=== PATIENT | female | born 1980 | race Two or more races ===

== ENCOUNTER 2017-04-07 14:09 | Emergency (ER) | payer MEDICAID ==
--- NOTE | 2017-04-07 15:16 | EDPHY ---
H & P Time Seen by Provider: 04/07/17 15:15 HPI/ROS: Chief complaint. Headache HPI. 36-year-old female with headaches for many years. She has had daily headaches for the past 6 weeks. They usually began at 1:22 a.m. in the afternoon. She has been using a bottle of Tylenol per for control of her headaches. Now she has left flank pain back pain. She has had no fever or upper respiratory symptoms. No injury to her head. Headache is described as behind both eyes and then going to the top of her head. Several years ago she had similar symptoms previously and then she had eye surgery which resolved her headaches for quite some time. She does not use any eyedrops or have continuing eye problems other than wearing glasses. She denies focal weakness or paresthesias. No change in her vision. Denies chest discomfort or trouble ROS Constitutional. no fever/chills, no weakness Eyes. no problems with vision ENT. no sore throat, no nasal drainage Cardiovascular. no chest pain Respiratory. no shortness of breath, no cough Abdominal. no abdominal pain, no nausea/vomiting, no diarrhea. Left flank pain . no problems urinating MS. Low back pain Skin. no rash Lymph. no swollen glands Neuro. Headache Past Medical/Surgical History: Headache, Social History: Single, nonsmoker, no alcohol Smoking Status: Never smoked Physical Exam: General Appearance: Alert well-developed female mild distress vital signs are stable Eyes: Pupils equal and round no pallor or injection. No restriction of gaze ENT, Mouth: Mucous membranes are moist. Respiratory: There are no retractions, lungs are clear to auscultation. Cardiovascular: Regular rate and rhythm. Gastrointestinal: Abdomen is soft and nontender, no masses, bowel sounds normal. Neurological: Awake and alert, sensory and motor exams grossly normal. Speech is normal. Cranial nerves are normal. There is no pronator drift. Finger-to- nose and edpt-cl-[id number] are intact bilateral Skin: Warm and dry, no rashes. Musculoskeletal: Neck is supple nontender. Extremities symmetrical, full range of motion. Psychiatric: Patient is oriented X 3, there is no agitation. Constitutional: Initial Vital Signs Temperature (C) 37 C 04/07/17 14:23 Heart Rate 80 04/07/17 14:23 Respiratory Rate 18 04/07/17 14:23 Blood Pressure 122/95 H 04/07/17 14:23 O2 Sat (%) 96 04/07/17 14:23 O2 Delivery Mode Room Air Allergies/Adverse Reactions: No Known Allergies Allergy (Unverified 10/22/09 09:09) Home Medications: Medication Instructions Recorded Rizatriptan Benzoate [Maxalt] 5 mg PO ONCE PRN #7 tab 04/07/17 Medical Decision Making Procedures: IV normal saline, Toradol IV ED Course/Re-evaluation: Re-evaluation 4:45 p.m.. Patient is stable. Does not have a headache. Recheck again at 5:20 p.m.. Patient is stable. She is having her menstrual. And feels that the blood in her urine is from menstrual flow. Patient and I discussed laboratory evaluation, treatment plan including criteria for return importance of follow-up and further evaluation. She expresses understanding and agreement Differential Diagnosis: The sound like stress type headaches as they always occur at 1 or 2 in the afternoon. She has a normal neurologic exam. Using Toradol her headache is completely resolved. She told me that she was using a bottle of Tylenol week but her Tylenol level is normal and there is no elevation of LFTs. I considered a CD manifested toxicity as well - Data Points Laboratory Results: Laboratory Results 04/07/17 15:45 04/07/17 15:45 04/07/17 04/07/17 04/07/17 16:50 15:45 15:45 WBC RBC Hgb Hct MCV MCH MCHC RDW Plt Count MPV Neut % (Auto) Lymph % (Auto) [place] % (Auto) Eos % (Auto) Baso % (Auto) Nucleat RBC Rel Count Absolute Neuts (auto) Absolute Lymphs (auto) Absolute Monos (auto) Absolute Eos (auto) Absolute Basos (auto) Absolute Nucleated RBC Immature Gran % Immature Gran # Sodium 142 mEq/L mEq/L (134-144) Potassium 4.3 mEq/L mEq/L (3.5-5.2) Chloride 109 mEq/L mEq/L (97-110) Carbon Dioxide 23 mEq/l mEq/l (22-31) Anion Gap 10 mEq/L mEq/L (8-16) BUN 14 mg/dL mg/dL (7-23) Creatinine 0.7 mg/dL mg/dL (0.6-1.0) Estimated GFR > 60 Glucose 78 mg/dL mg/dL (70-100) Calcium 9.1 mg/dL mg/dL (8.5-10.4) Total Bilirubin 0.5 mg/dL mg/dL (0.1-1.4) Conjugated Bilirubin 0.3 mg/dL mg/dL (0.0-0.5) Unconjugated Bilirubin 0.2 mg/dL mg/dL (0.0-1.1) AST 20 IU/L IU/L (14-46) ALT 28 IU/L IU/L (9-52) Alkaline Phosphatase 48 IU/L IU/L (38-126) Total Protein 7.3 g/dL g/dL (6.3-8.2) Albumin 4.4 g/dL g/dL (3.5-5.0) Beta HCG, Qual NEGATIVE Urine Color YELLOW Urine Appearance HAZY Urine pH 5.0 (5.0-7.5) Ur Specific [place] 1.018 (1.002-1.030) Urine Protein NEGATIVE (NEGATIVE) Urine Ketones NEGATIVE (NEGATIVE) Urine Blood 3+ H (NEGATIVE) Urine Nitrate NEGATIVE (NEGATIVE) Urine Bilirubin NEGATIVE (NEGATIVE) Urine Urobilinogen NEGATIVE EU EU (0.2-1.0) Ur Leukocyte Esterase NEGATIVE (NEGATIVE) Urine RBC 50-182 /hpf H /hpf (0-3) Urine WBC 1-3 /hpf /hpf (0-3) Ur Epithelial Cells TRACE /lpf /lpf (NONE-1+) Urine Mucus TRACE /lpf /lpf (NONE-1+) Urine Glucose NEGATIVE (NEGATIVE) Acetaminophen < 10 mcg/mL L mcg/mL (10.0-30.0) 04/07/17 15:45 WBC 5.80 10^3/uL 10^3/uL (3.80-9.50) RBC 4.55 10^6/uL 10^6/uL (4.18-5.33) Hgb 13.9 g/dL g/dL (12.6-16.3) Hct 42.0 % % (38.0-47.0) MCV 92.3 fL fL (81.5-99.8) MCH 30.5 pg pg (27.9-34.1) MCHC 33.1 g/dL g/dL (32.4-36.7) RDW 13.6 % % (11.5-15.2) Plt Count 327 10^3/uL 10^3/uL (150-400) MPV 11.6 fL fL (8.7-11.7) Neut % (Auto) 61.1 % % (39.3-74.2) Lymph % (Auto) 28.1 % % (15.0-45.0) [place] % (Auto) 7.2 % % (4.5-13.0) Eos % (Auto) 2.6 % % (0.6-7.6) Baso % (Auto) 0.7 % % (0.3-1.7) Nucleat RBC Rel Count 0.0 % % (0.0-0.2) Absolute Neuts (auto) 3.54 10^3/uL 10^3/uL (1.70-6.50) Absolute Lymphs (auto) 1.63 10^3/uL 10^3/uL (1.00-3.00) Absolute Monos (auto) 0.42 10^3/uL 10^3/uL (0.30-0.80) Absolute Eos (auto) 0.15 10^3/uL 10^3/uL (0.03-0.40) Absolute Basos (auto) 0.04 10^3/uL 10^3/uL (0.02-0.10) Absolute Nucleated RBC 0.00 10^3/uL 10^3/uL (0-0.01) Immature Gran % 0.3 % % (0.0-1.1) Immature Gran # 0.02 10^3/uL 10^3/uL (0.00-0.10) Sodium Potassium Chloride Carbon Dioxide Anion Gap BUN Creatinine Estimated GFR Glucose Calcium Total Bilirubin Conjugated Bilirubin Unconjugated Bilirubin AST ALT Alkaline Phosphatase Total Protein Albumin Beta HCG, Qual Urine Color Urine Appearance Urine pH Ur Specific [place] Urine Protein Urine Ketones Urine Blood Urine Nitrate Urine Bilirubin Urine Urobilinogen Ur Leukocyte Esterase Urine RBC Urine WBC Ur Epithelial Cells Urine Mucus Urine Glucose Acetaminophen Medications Given: Discontinued Medications Sodium Chloride (Ns) 1,000 mls @ 0 mls/hr IV ONCE ONE; Wide Open PRN Reason: Protocol Stop: 04/07/17 15:30 Last Admin: 04/07/17 15:58 Dose: 1,000 mls Ketorolac Tromethamine (Toradol) 30 mg IVP EDNOW ONE Stop: 04/07/17 15:30 Last Admin: 04/07/17 15:58 Dose: 30 mg Departure - Departure Disposition: Home, Routine, Self-Care Clinical Impression: Headache Qualifiers: Headache type: tension-type Headache chronicity pattern: acute headache Intractability: not intractable Qualified Code(s): G44.209 - Tension-type headache, unspecified, not intractable Condition: Good Instructions: Acute Headache (ED) Additional Instructions: May use Tylenol 1000 mg every 8 hours for headache. Ibuprofen 600 mg every 6 hours as needed for headache. Drink plenty of fluids and stay hydrated. Try Maxalt in addition for your headache. Return for worsening headache, fever. Make an appointment with physician for further evaluation and treatment of your headaches. Referrals: NONE *PRIMARY CARE P,. [Primary Care Provider] - As per Instructions Franco Allen MD [Medical Doctor] - 5-7 days, call for appt. Prescriptions: Rizatriptan Benzoate [Maxalt] 5 mg PO ONCE PRN #7 tab PRN Reason: Headache
[2017-04-07] MEDS ORDERED: KETOROLAC 30 MG/1 ML SDV IVP ONE (15:29)
[2017-04-07] MEDS ORDERED: NS 1,000 ML IV ONE (15:29)
[2017-04-07 15:58] LABS: % IMMATURE GRANULYOCYTES 0.3 % (0.0-1.1); ABSOLUTE IMMATURE GRANULOCYTES 0.02 10^3/uL (0.00-0.10); ADD DIFF? NO; ADD MORPH? NO; ADD SCAN? NO; ATYPICAL LYMPHOCYTE FLAG 30 (0-99); FRAGMENT RBC FLAG 0 (0-99); HEMOGLOBIN 13.9 g/dL (12.6-16.3); LEFT SHIFT FLG 0 (0-99); LIPEMIA HEMOLYSIS FLAG 80 (0-99); MEAN CELL HEMOGLOBIN 30.5 pg (27.9-34.1); MEAN CELL HEMOGLOBIN CONCENTR. 33.1 g/dL (32.4-36.7); MEAN CELL VOLUME 92.3 fL (81.5-99.8); MEAN PLATELET VOLUME 11.6 fL (8.7-11.7); PLATELET CLUMPS FLAG 0 (0-99); PLATELET COUNT 327 10^3/uL (150-400); RED BLOOD CELL COUNT 4.55 10^6/uL (4.18-5.33); RED CELL DISTRIBUTION WIDTH 13.6 % (11.5-15.2)
[2017-04-07 16:10] LABS: ALANINE AMINOTRANSFERASE 28 IU/L (9-52); ALBUMIN 4.4 g/dL (3.5-5.0); ALKALINE PHOSPHATASE 48 IU/L (38-126); ANION GAP 10 mEq/L (8-16); ASPARTATE AMINOTRANSFERASE 20 IU/L (14-46); BILIRUBIN,TOTAL 0.5 mg/dL (0.1-1.4); BILIRUBIN-CONJUGATED 0.3 mg/dL (0.0-0.5); BILIRUBIN-UNCONJUGATED 0.2 mg/dL (0.0-1.1); CALCIUM 9.1 mg/dL (8.5-10.4); CARBON DIOXIDE 23 mEq/l (22-31); CHLORIDE 109 mEq/L (97-110); CREATININE 0.7 mg/dL (0.6-1.0); GLOMERULAR FILTRATION RATE > 60; GLUCOSE 78 mg/dL (70-100); POTASSIUM 4.3 mEq/L (3.5-5.2); SODIUM 142 mEq/L (134-144); TOTAL PROTEIN 7.3 g/dL (6.3-8.2)
[2017-04-07 16:58] LABS: COLOR YELLOW; LEUKOCYTE ESTERASE,URINE NEGATIVE (NEGATIVE); NITRITE,URINE NEGATIVE (NEGATIVE)
[2017-04-07 17:15] LABS: MUCUS TRACE /lpf (NONE-1+); RBC,URINE 50-182 /hpf (0-3)
[2017-04-07 17:35] VITALS: BP 112/76; PULSE 76; RESP 16; TEMP 97.7; O2SAT 98
== END 2017-04-07 17:41 | disposition home or self-care (01) ==
DX: G44.209 Tension-type headache, unspecified, not intractable (principal); E86.9 Volume depletion, unspecified
CPT/HCPCS: 96374; G0480; J1885

== ENCOUNTER 2017-12-27 09:55 | Emergency (ER) | payer MEDICAID ==
--- NOTE | 2017-12-27 10:11 | EDPHY ---
H & P Stated Complaint: Fever and body aches for 6 weeks, cough since Source: Patient Exam Limitations: No limitations - Personal History LMP (Females 10-55): 8-14 Days Ago Current Tetanus Diphtheria and Acellular Pertussis (TDAP): Yes - Medical/Surgical History Hx Asthma: No Hx Chronic Respiratory Disease: No Hx Diabetes: No Hx Cardiac Disease: No Hx Renal Disease: No Hx Cirrhosis: No Hx Alcoholism: No Hx HIV/AIDS: No Hx Splenectomy or Spleen Trauma: No Other PMH: c section x 2 - Social History Smoking Status: Former smoker Time Seen by Provider: 12/27/17 10:10 HPI/ROS: HPI: This is a 37-year-old female who presents with Chief Complaint: Fever and body aches for 6 weeks, cough since Location: Chest Quality: Cough Duration: 6 weeks Signs and Symptoms: no fever, no nausea, no vomiting, no diarrhea, no urinary symptoms, no chest pain, no shortness of breath, no wheezing, + productive cough , + sore throat, no neck stiffness, no joint pain, no swollen glands, no ear pain, no rash, + nasal congestion Timing: Worsening Severity: Moderate Context: Patient complains of cough, sore throat, earache, body aches and fever x 6 weeks. Patient is a smoker and reports over the last 3 days her cough has now become productive and more harsh in severity. It is now keeping her up at night. Denies any history of lung disease. She has not smoked since . LMP 1-2 weeks ago. Patient denies any recent long distance travel/ lower extremity edema. History of bilateral tubal ligation does not take oral contraceptive pills. Reports decreased appetite but eating and drinking without difficulty. Has 4 children at home and works full-time job. Modifying Factors: None Comment: ROS: see HPI Constitutional: + fever, no chills, no weight loss Eyes: No blurred vision Respiratory: No shortness of breath, + cough Cardiovascular: No chest pain, no palpitations Gastrointestinal: No nausea, no vomiting, no diarrhea, no hematemesis, no blood in stool Genitourinary: No dysuria, no blood in urine Extremities: No myalgias, no edema Neurologic: No weakness, no numbness Skin: No rashes, no petechiae Hematologic: No bruising, no bleeding MEDICAL/SURGICAL/SOCIAL HISTORY: Medical history: Generally healthy. Does not take any regular medications. Surgical history: x2; bilateral tubal ligation Social history: Family history noncontributory. CONSTITUTIONAL: Polite and cooperative, ill but nontoxic-appearing adult female , awake and alert, no obvious distress HEENT: Atraumatic and normocephalic, PERRL, EOMI. Tympanic membranes clear. Oropharynx clear, no tonsillar hypertrophy; uvula midline; no exudate and moist pink mucosa. Airway patent. No lymphadenopathy. No meningismus. Cardiovascular: Normal S1/S2, mild tachycardia, regular rhythm, without murmur rub or gallop. PULMONARY/CHEST: Symmetrical and nontender. Clear to auscultation bilaterally. Good air movement. No accessory muscle usage. ABDOMEN: Soft, nondistended, nontender, no rebound, no guarding, no peritoneal signs, no masses or organomegaly. No CVAT. EXTREMITIES: 2/2 pulses, strength 5/5, no deformities, no clubbing, no cyanosis or edema. NEUROLOGICAL: no focal neuro deficits. GCS 15. SKIN: Warm and dry, no erythema. no rash. Good capillary refill. (Elli Little) Constitutional: Initial Vital Signs Temperature (C) 37.4 C 12/27/17 09:58 Heart Rate 103 H 12/27/17 09:58 Respiratory Rate 18 12/27/17 09:58 Blood Pressure 105/66 12/27/17 09:58 O2 Sat (%) 93 12/27/17 09:58 O2 Delivery Mode Room Air Allergies/Adverse Reactions: No Known Allergies Allergy (Unverified 10/22/09 09:09) Home Medications: Medication Instructions Recorded Albuterol Sulfate [Proair Hfa] 1 - 2 puffs IH Q4 PRN #1 hfa.aer.ad 12/27/17 Benzonatate [Tessalon Pearles (RX)] 100 mg PO Q6 PRN #12 cap 12/27/17 Doxycycline Hyclate 100 mg PO BID #14 tab 12/27/17 Medical Decision Making - Diagnostics Imaging Results: Imaging Impressions Chest X-Ray 12/27/17 10:14 Impression: Infiltrate, posterior medial left lower lobe. Consider follow-up chest radiography in 4-6 weeks to assure complete resolution. ED Course/Re-evaluation: The patient was evaluated and managed by the physician's transportation assistant. My cosignature indicates that I reviewed the chart and I agree with the findings and plan of care as documented. I am the secondary supervising physician. ( Stacia German) Chest x-ray, oral medications, nebulizer therapy ordered Vital signs reviewed upon arrival and stable Patient given DuoNeb, prednisone 60 mg, Tessalon Perles, and [place] adequate relief. Low risk for pulmonary embolism Healthy; no risk factors; treat as community-acquired pneumonia; Rx doxycycline Chest x-ray my read shows + opacity left lower lobe, no effusion, no pneumothorax, no widened mediastinum No signs of otitis media/sinusitis/meningitis/dehydration/hypoxia/respiratory distress/tonsillar abscess This patient was seen under the supervision of my secondary supervising physician. I evaluated care for this patient independently. (Elli Little) Differential Diagnosis: Adult fever including but not limited to viral syndromes including influenza, bronchitis, pneumonia and sepsis. (Elli Little) - Data Points Medications Given: Discontinued Medications Hydrocodone Bitart/Acetaminophen ([place] 5/325) 1 tab PO EDNOW ONE Stop: 12/27/17 10:19 Last Admin: 12/27/17 10:27 Dose: 1 tab Albuterol/Ipratropium (Duoneb) 3 ml IH EDNOW ONE Stop: 12/27/17 10:19 Last Admin: 12/27/17 10:27 Dose: 3 ml Benzonatate (Tessalon Pearles) 200 mg PO EDNOW ONE Stop: 12/27/17 10:19 Last Admin: 12/27/17 10:27 Dose: 200 mg Prednisone (Prednisone) 60 mg PO EDNOW ONE Stop: 12/27/17 10:19 Last Admin: 12/27/17 10:26 Dose: 60 mg Departure - Departure Disposition: Home, Routine, Self-Care Clinical Impression: Community acquired pneumonia Qualifiers: Laterality: left Lung location: lower lobe of lung Qualified Code(s): J18.1 - Lobar pneumonia, unspecified organism Condition: Good Instructions: Acute Bronchitis (ED) Additional Instructions: Rest as much as possible until you are feeling better. Please refrain from smoking cigarettes and consider tobacco cessation altogether. Consume a minimum of 8-10 glasses of water or electrolyte fluid replacement drinks that include Gatorade, Powerade, Pedialyte. Take all medications as prescribed. Return to the ER immediately if you experience fevers/chills, shortness of breath, abdominal pain, inability to tolerate oral intake, or any other symptoms that concern you. Referrals: PCP Not In,Dictionary [Medical Doctor] - 5-7 days, if not improved Stand Alone Forms: Work Excuse Prescriptions: Albuterol Sulfate [Proair Hfa] 1 - 2 puffs IH Q4 PRN #1 hfa.aer.ad PRN Reason: Short Of Breath/Dyspnea Benzonatate [Tessalon Pearles (RX)] 100 mg PO Q6 PRN #12 cap PRN Reason: Cough, Moderate Doxycycline Hyclate 100 mg PO BID #14 tab
[2017-12-27] MEDS ORDERED: IPRATROPIUM/ALBUTEROL 3 ML DEYVIAL IH ONE (10:18)
[2017-12-27] MEDS ORDERED: predniSONE 20 MG TAB PO ONE (10:18)
[2017-12-27] MEDS ORDERED: HYDROCODONE/APAP 5/325 TAB PO ONE (10:18)
[2017-12-27] MEDS ORDERED: BENZONATATE 100 MG CAP PO ONE (10:18)
[2017-12-27 11:18] VITALS: BP 122/82
== END 2017-12-27 11:19 | disposition home or self-care (01) ==
DX: J18.1 Lobar pneumonia, unspecified organism (principal); Z87.891 Personal history of nicotine dependence
CPT/HCPCS: J7512

== ENCOUNTER 2018-03-07 09:08 | Emergency (ER) | payer MEDICAID ==
--- NOTE | 2018-03-07 09:58 | EDPHY ---
H & P Smoking Status: Current every day smoker Time Seen by Provider: 03/07/18 09:16 HPI/ROS: CHIEF COMPLAINT: Right ankle injury HISTORY OF PRESENT ILLNESS: 37-year-old female presents to the emergency department with injury to the right ankle. The patient was at home last night and her son was on his skateboard and he was going to fall so she went to go grab him and the skateboard kicked back and hit her in the anterior medial aspect of her right leg and ankle area. She states that she was initially able to walk on it this morning is unable to bear weight because of severe pain. She has isolated pain in her right ankle on the medial aspect. Denies any other trauma or injury. ROS: Denies numbness or tingling in her toes, pain in her right calf or knee. Denies pain in her right foot. (Jaimie Pacheco) Past Medical/Surgical History: x2 (Jaimie Pacheco) Social History: Single and lives in [place] (Jaimie Pacheco) Physical Exam: On examination, the patient has swelling and ecchymosis to the anterior medial aspect of the right ankle. She has tenderness even just with light touch. She has full dorsi and plantar flexion, however this does cause some pain. Nontender to palpate in right calf. Mild pain with palpation to the medial aspect of her right foot. Achilles tendon is intact. She has a very small superficial abrasion noted overlying the anterior medial aspect of the right ankle. Right knee is nontender. (Jaimie Pacheco) Constitutional: Initial Vital Signs Temperature (C) 36.8 C 03/07/18 09:10 Heart Rate 82 03/07/18 09:10 Respiratory Rate 16 03/07/18 09:10 Blood Pressure 121/81 H 03/07/18 09:10 O2 Sat (%) 99 03/07/18 09:10 O2 Delivery Mode Room Air Allergies/Adverse Reactions: No Known Allergies Allergy (Unverified 03/07/18 09:13) Home Medications: Medication Instructions Recorded No Known Home Meds 03/07/18 MDM/Departure - [facility] Imaging: I viewed and interpreted images myself - [facility] ED Course/Re-evaluation: 37-year-old female presents emergency department with injury to her right foot and ankle. X-rays reveal no fractures. She was placed in an Kike wrap and given orthopedic referral. (Jaimie Pacheco) - Depart Disposition: Home, Routine, Self-Care Clinical Impression: Contusion of right foot Condition: Good Instructions: Foot Contusion (ED) Additional Instructions: Weightbear and activity as tolerated. Ice and elevation to help reduce swelling. Ibuprofen 600 mg every 8 hr as needed for pain. Referrals: Tony Quijano MD [Medical Doctor] - 2-3 days, if not improved (Orthopedic surgeon on-call)
[2018-03-07 10:33] VITALS: BP 128/78
== END 2018-03-07 10:33 | disposition home or self-care (01) ==
DX: S90.31XA Contusion of right foot, initial encounter (principal); F17.200 Nicotine dependence, unspecified, uncomplicated; V00.138A Other skateboard accident, initial encounter; Y92.009 Unspecified place in unspecified non-institutional (private) residence as the place of occurrence of the external cause